=== PATIENT | female | born 1960 ===

== ENCOUNTER 2024-02-18 09:15 | Inpatient (IN) | payer OTHER ==
[~2024-02-18] VITALS: Ht 170.2 cm; Wt 50.8 kg
[2024-02-18 12:16] LABS: URINE APPEARANCE Clear; URINE BILIRRUBIN Negative (NEGATIVE); URINE BLOOD Small; URINE COLOR Yellow; URINE GLUCOSE Negative (NEGATIVE); URINE LEUKOCYTE Trace; URINE NITRATE Negative; URINE UROBILINOGEN 0.2 E.U./dl
[2024-02-18 12:20] LABS: URINE BACTERIA 85.6 uL (0.0-1933); URINE EPITHELIAL CELLS 39.4 uL (0.0-38.8); URINE RBC 64.1 uL (0.0-20.8); URINE WBC 23.6 uL (0.0-23.2)
[2024-02-18 12:22] LABS: HEMATOCRIT 35.8 % (36.0-45.00); HEMOGLOBIN 12.3 g/dL (12.0-15.00); MEAN CELL VOLUME 84.6 fL (80.00-100.00); MEAN CORPUSCULAR HEMOGLOBIN 29.2 pg (27.00-32.0); MEAN CORPUSCULAR HGB CONC 34.5 g/dl (32.0-36.0); PLATELET COUNT 280 K/uL (150-450); RED BLOOD COUNT 4.23 M/uL (4.00-6.00); RED CELL DISTRIBUTION WIDTH 13.8 % (11.5-14.5)
[2024-02-18 12:35] LABS: URINE PROTEIN 100 (NEGATIVE)
[2024-02-18 12:36] LABS: URINE MUCUS MODERATE
[2024-02-18 12:41] LABS: INR 1.02; PARTIAL THROMBOPLASTIN TIME 26.8 SECONDS (22.0-34.0); PROTHROMBIN TIME 10.7 SECONDS (9.0-11.5)
[2024-02-18 12:56] LABS: ALBUMIN 4.1 gm/dL (3.4-5.0); CALCIUM 9.2 mg/dL (8.5-10.1); CREATININE SERUM 0.48 mg/dL (0.55-1.02); GFR 130.62; PHOSPHOROUS 3.4 mg/dL (2.5-4.9); POTASSIUM 3.9 mEq/L (3.5-5.1)
[2024-02-18] MEDS ORDERED: KEPPRA1000 MG PO (14:54)
[2024-02-18] MEDS ORDERED: SYNTHROID125 MCG PO (14:55)
[2024-02-18] MEDS ORDERED: TRILEPTAL600 MG PO (14:55)
[2024-02-18] MEDS ORDERED: CRESTOR20 MG PO (14:55)
[2024-02-18] MEDS ORDERED: TREXALL5 MG PO (14:56)
[2024-02-23] MEDS ORDERED: CHLORHEXIDINE GLUCONATE 120 ML BOTTLE TOP ONE (14:55)
[2024-02-23] MEDS ORDERED: CEFTRIAXONE SODIUM 2,000 MG VIAL ONE (15:15)
[2024-02-23] MEDS ORDERED: METRONIDAZOLE/SODIUM CHLORIDE 500 MG/100 ML PIGGYBACK IV ONE (15:16)
[2024-02-23] MEDS ORDERED: FOLIC ACID1 MG (15:47)
[2024-02-23] MEDS ORDERED: ALENDRONATE SOD70 MG (15:47)
[2024-02-23] MEDS ORDERED: LevETIRAcetam 500 MG TAB. PO SCH (21:00)
[2024-02-23] MEDS ORDERED: TRILEPTAL PO SCH (21:00)
[2024-02-23] MEDS ORDERED: MORPHINE SULFATE 4 MG/ML CARTRIDGE IV PRN (23:00)
[2024-02-24] MEDS ORDERED: SYNTHROID 125 MCG (MARCA ORIGINAL) PO SCH (06:00)
[2024-02-24 06:55] LABS: MEAN CELL VOLUME 85.2 fL (80.00-100.00); MEAN CORPUSCULAR HEMOGLOBIN 29.3 pg (27.00-32.0); MEAN CORPUSCULAR HGB CONC 34.4 g/dl (32.0-36.0); PLATELET COUNT 238 K/uL (150-450); RED BLOOD COUNT 3.76 M/uL (4.00-6.00); RED CELL DISTRIBUTION WIDTH 13.9 % (11.5-14.5)
[2024-02-24 07:07] LABS: ALBUMIN 3.2 gm/dL (3.4-5.0); CALCIUM 8.5 mg/dL (8.5-10.1); GFR 232.9; MAGNESIUM 1.6 mg/dL (1.8-2.4); PHOSPHOROUS 3.3 mg/dL (2.5-4.9)
[2024-02-24 07:22] LABS: CREATININE SERUM 0.29 mg/dL (0.55-1.02)
[2024-02-24] MEDS ORDERED: DEXTROSE 5 %-0.45 % SOD CHLORD 1,000 ML IV SCH (08:00)
[2024-02-24] MEDS ORDERED: MAGNESIUM SULFATE IN WATER 50 ML IV NR (08:45)
[2024-02-24] MEDS ORDERED: PHENOL 177 ML BOTTLE MM SCH (09:00)
[2024-02-24] MEDS ORDERED: ENOXAPARIN SODIUM 40 MG/0.4 ML SYRINGE SUBCUTANEO SCH (09:00)
[2024-02-24] MEDS ORDERED: FAMOTIDINE/PF 20 MG in 0.9 % SODIUM CHLORIDE 8 ML IV PUSH SCH (09:00)
[2024-02-24] MEDS ORDERED: CRESTOR 20 MG PO SCH (17:00)
[2024-02-25 07:01] LABS: HEMATOCRIT 29.2 % (36.0-45.00); HEMOGLOBIN 10.2 g/dL (12.0-15.00); MEAN CELL VOLUME 84.6 fL (80.00-100.00); MEAN CORPUSCULAR HEMOGLOBIN 29.5 pg (27.00-32.0); MEAN CORPUSCULAR HGB CONC 34.8 g/dl (32.0-36.0); PLATELET COUNT 216 K/uL (150-450); RED BLOOD COUNT 3.45 M/uL (4.00-6.00); RED CELL DISTRIBUTION WIDTH 14.1 % (11.5-14.5)
[2024-02-25 07:38] LABS: CALCIUM 8.4 mg/dL (8.5-10.1); MAGNESIUM 2.1 mg/dL (1.8-2.4); POTASSIUM 3.7 mEq/L (3.5-5.1)
[2024-02-25 08:09] LABS: CREATININE SERUM 0.23 mg/dL (0.55-1.02); GFR 304.34; PHOSPHOROUS 1.9 mg/dL (2.5-4.9)
[2024-02-25] MEDS ORDERED: SOD FERRIC GLUC COMPLX/SUCROSE 62.5 MG in 0.9 % SODIUM CHLORIDE 50 ML IV SCH (09:00)
[2024-02-25] MEDS ORDERED: Cyanocobalamin/Mecobalamin 1 TAB.SL SL SCH (09:00)
[2024-02-25] MEDS ORDERED: POTASSIUM PHOS,M-BASIC-D-BASIC 3 MM/ML VIAL IV NR (12:00)
[2024-02-26] MEDS ORDERED: PANTOPRAZOLE SODIUM 40 MG/VIAL VIAL IV STA (06:13)
[2024-02-26 08:01] LABS: HEMATOCRIT 35.5 % (36.0-45.00); MEAN CORPUSCULAR HEMOGLOBIN 28.7 pg (27.00-32.0); MEAN CORPUSCULAR HGB CONC 33.7 g/dl (32.0-36.0); PLATELET COUNT 285 K/uL (150-450); RED BLOOD COUNT 4.18 M/uL (4.00-6.00); RED CELL DISTRIBUTION WIDTH 14.3 % (11.5-14.5)
[2024-02-26 09:05] LABS: CALCIUM 8.1 mg/dL (8.5-10.1); POTASSIUM 3.8 mEq/L (3.5-5.1)
[2024-02-26 09:31] LABS: CREATININE SERUM 0.26 mg/dL (0.55-1.02); GFR 264.18
[2024-02-26 09:42] LABS: PHOSPHOROUS 1.9 mg/dL (2.5-4.9)
[2024-02-26] MEDS ORDERED: NAPH,MB-DB/K PH,MBDB 1 PKT PACKET PO STA (09:48)
[2024-02-26] MEDS ORDERED: METOCLOPRAMIDE HCL 5 MG/ML VIAL IV SCH (17:00)
[2024-02-26] MEDS ORDERED: MORPHINE SULFATE 4 MG/ML CARTRIDGE IV PRN (19:45)
[2024-02-26] MEDS ORDERED: FAMOTIDINE/PF 20 MG in 0.9 % SODIUM CHLORIDE 8 ML IV PUSH SCH (21:00)
[2024-02-27] MEDS ORDERED: PANTOPRAZOLE SODIUM 40 MG/VIAL VIAL IV SCH (09:00)
[2024-02-27] MEDS ORDERED: PIPERACILLIN/TAZOBACTAM SODIUM 3.375 GM in DEXTROSE 5 % IN WATER 100 ML IV SCH (12:00)
[2024-02-27 22:33] LABS: HEMATOCRIT 31.2 % (36.0-45.00); HEMOGLOBIN 10.7 g/dL (12.0-15.00); MEAN CELL VOLUME 84.3 fL (80.00-100.00); MEAN CORPUSCULAR HEMOGLOBIN 28.9 pg (27.00-32.0); MEAN CORPUSCULAR HGB CONC 34.3 g/dl (32.0-36.0); PLATELET COUNT 370 K/uL (150-450); RED CELL DISTRIBUTION WIDTH 14.1 % (11.5-14.5)
[2024-02-28 09:31] LABS: HEMATOCRIT 27.9 % (36.0-45.00); HEMOGLOBIN 9.8 g/dL (12.0-15.00); MEAN CELL VOLUME 84.2 fL (80.00-100.00); MEAN CORPUSCULAR HEMOGLOBIN 29.5 pg (27.00-32.0); MEAN CORPUSCULAR HGB CONC 35.1 g/dl (32.0-36.0); PLATELET COUNT 352 K/uL (150-450); RED BLOOD COUNT 3.31 M/uL (4.00-6.00)
[2024-02-28] MEDS ORDERED: POTASSIUM PHOS,M-BASIC-D-BASIC 15 MM in 0.9 % SODIUM CHLORIDE 250 ML IV ONE (19:15)
[2024-02-29 13:04] LABS: HEMATOCRIT 30.9 % (36.0-45.00); HEMOGLOBIN 10.9 g/dL (12.0-15.00); MEAN CELL VOLUME 85.1 fL (80.00-100.00); MEAN CORPUSCULAR HEMOGLOBIN 30.1 pg (27.00-32.0); MEAN CORPUSCULAR HGB CONC 35.4 g/dl (32.0-36.0); PLATELET COUNT 384 K/uL (150-450); RED BLOOD COUNT 3.63 M/uL (4.00-6.00); RED CELL DISTRIBUTION WIDTH 13.6 % (11.5-14.5)
[2024-02-29 13:44] LABS: ALBUMIN 3.1 gm/dL (3.4-5.0); CALCIUM 8.8 mg/dL (8.5-10.1); CREATININE SERUM 0.31 mg/dL (0.55-1.02); GFR 215.65; PHOSPHOROUS 2.8 mg/dL (2.5-4.9)
[2024-02-29 14:06] LABS: POTASSIUM 2.83 mEq/L (3.5-5.1)
[2024-02-29] MEDS ORDERED: MAGNESIUM SULFATE/D5W 100 ML IV NR (19:30)
[2024-02-29] MEDS ORDERED: POTASSIUM CHLORIDE IN WATER 100 ML IV SCH (21:00)
[2024-03-01 08:08] LABS: ANION GAP 6 (10.0-20.0); CALCIUM 7.9 mg/dL (8.5-10.1); CARBON DIOXIDE 33 mEq/L (21-32); CHLORIDE 101 mmol/L (98-107); GLUCOSE FASTING 102 mg/dL (65-100); SODIUM 137 mmol/L (136-145)
[2024-03-01 08:14] LABS: BLOOD UREA NITROGEN < 1 mg/dL (7-18); BUN CREA RATIO 4 (7.0-25.0); CREATININE SERUM 0.24 mg/dL (0.55-1.02); GFR 289.74; OSMOLALITY SERUM 270 MOSM/KG (275-295)
[2024-03-01 08:32] LABS: POTASSIUM 2.88 mEq/L (3.5-5.1)
[2024-03-01] MEDS ORDERED: POTASSIUM CHLORIDE IN WATER 100 ML IV STA (10:32)
[2024-03-01] MEDS ORDERED: SOD FERRIC GLUC COMPLX/SUCROSE 62.5 MG in 0.9 % SODIUM CHLORIDE 50 ML IV SCH (12:00)
[2024-03-01] MEDS ORDERED: LACTOBACILLUS ACIDOPHILUS 1 CAP CAP PO SCH (17:00)
[2024-03-02 07:02] LABS: HEMATOCRIT 27.5 % (36.0-45.00); HEMOGLOBIN 9.6 g/dL (12.0-15.00); MEAN CELL VOLUME 83.7 fL (80.00-100.00); MEAN CORPUSCULAR HEMOGLOBIN 29.3 pg (27.00-32.0); PLATELET COUNT 420 K/uL (150-450); RED BLOOD COUNT 3.28 M/uL (4.00-6.00); RED CELL DISTRIBUTION WIDTH 14.4 % (11.5-14.5)
[2024-03-02 07:18] LABS: CALCIUM 8.4 mg/dL (8.5-10.1); GFR 242.53; POTASSIUM 3.01 mEq/L (3.5-5.1)
[2024-03-02 07:20] LABS: CREATININE SERUM 0.28 mg/dL (0.55-1.02)
== END 2024-03-02 11:47 | disposition home or self-care (01) | DRG 330 ==
LOC: SURH 02-23 07:00 → O/R 02-23 09:11 → EDBD 02-23 09:15 → SURH 02-23 09:15
PROVIDERS: Internal Medicine Geriatric Medicine; Specialist; ADMIT Surgery; ATTEND Surgery
PROC: 0DBP4ZZ Excision of Rectum, Percutaneous Endoscopic Approach (ICD-10-PCS; 2024-02-23)
PROC: 0DJD8ZZ Inspection of Lower Intestinal Tract, Via Natural or Artificial Opening Endoscopic (ICD-10-PCS; 2024-02-23)
PROC: 0DTN4ZZ Resection of Sigmoid Colon, Percutaneous Endoscopic Approach (ICD-10-PCS; principal; 2024-02-23 07:00)
DX: K56.2 Volvulus (principal); K51.40 Inflammatory polyps of colon without complications; K56.52 Intestinal adhesions [bands] with complete obstruction; D64.89 Other specified anemias; E87.6 Hypokalemia; E03.9 Hypothyroidism, unspecified; Z43.3 Encounter for attention to colostomy